=== PATIENT | female | born 1960 | race Caucasian/White ===

== ENCOUNTER → 2021-03-29 09:04 | Outpatient (CLI) | payer OTHER | END | disposition home or self-care (01) | LOC: LAB 09:04 | DX: L30.8 Other specified dermatitis (principal); G40.909 Epilepsy, unspecified, not intractable, without status epilepticus; L23.5 Allergic contact dermatitis due to other chemical products; M35.00 Sjogren syndrome, unspecified; E03.8 Other specified hypothyroidism; E78.2 Mixed hyperlipidemia; G60.8 Other hereditary and idiopathic neuropathies; M25.50 Pain in unspecified joint; A52.3 Neurosyphilis, unspecified; M81.0 Age-related osteoporosis without current pathological fracture; I20.1 Angina pectoris with documented spasm; D68.311 Acquired hemophilia ==

== ENCOUNTER 2025-01-07 07:24 | Outpatient (CLI) | payer OTHER ==
[2025-01-07 08:10] LABS: URINE APPEARANCE Clear; URINE BILIRRUBIN Negative (NEGATIVE); URINE BLOOD Negative; URINE COLOR Yellow; URINE GLUCOSE Negative (NEGATIVE); URINE KETONE Negative (NEGATIVE); URINE LEUKOCYTE Negative; URINE NITRATE Negative; URINE PROTEIN Negative (NEGATIVE); URINE UROBILINOGEN 0.2 E.U./dl
[2025-01-07 08:13] LABS: URINE BACTERIA 4.8 uL (0.0-1933)
[2025-01-07 08:18] LABS: HEMATOCRIT 40.5 % (36.0-45.00); HEMOGLOBIN 13.5 g/dL (12.0-15.00); MEAN CELL VOLUME 88.9 fL (80.00-100.00); MEAN CORPUSCULAR HEMOGLOBIN 29.5 pg (27.00-32.0); MEAN CORPUSCULAR HGB CONC 33.2 g/dl (32.0-36.0); PLATELET COUNT 324 K/uL (150-450); RED BLOOD COUNT 4.56 M/uL (4.00-6.00); RED CELL DISTRIBUTION WIDTH 14.3 % (11.5-14.5)
[2025-01-07 08:29] LABS: URINE EPITHELIAL CELLS 1.1 uL (0.0-38.8); URINE RBC 1.1 uL (0.0-20.8)
[2025-01-07 08:57] LABS: D DIMER 0.36 MG/L; PARTIAL THROMBOPLASTIN TIME 26.9 SECONDS (22.0-34.0); PROTHROMBIN TIME 10.9 SECONDS (9.0-11.5)
[2025-01-07 09:26] LABS: ALBUMIN 3.7 gm/dL (3.4-5.0); BILIRUBIN TOTAL 0.46 mg/dL (0.3-1.2); CALCIUM 9.5 mg/dL (8.5-10.1); CHOL HDL RATIO 5.3 (0-5.0); CREATININE SERUM 0.54 mg/dL (0.55-1.02); FERRITIN 35.5 NG/ML (8-252); GFR 113.66; GLOBULINA 3.1 G/DL (2.4-3.5); POTASSIUM 4.37 mEq/L (3.5-5.1); T4 TOTAL 9.3 UG/DL (4.8-13.9); TOTAL PROTEIN 6.8 gm/dL (6.4-8.2); TSH 3.63 uIU/mL (0.358-3.74)
[2025-01-07 10:18] LABS: PLATELET ESTIMATE NORMAL (NORMAL)
[2025-01-07 13:12] LABS: T3 TOTAL 1.1 ng/ml (0.846-2.02); VITAMIN D3 25 HYDROXY 46.69 ng/ml (30-120)
== END 2025-01-07 07:28 | disposition home or self-care (01) ==
LOC: LAB 07:24
PROVIDERS: ATTEND General Practice
DX: R79.89 Other specified abnormal findings of blood chemistry (principal); D68.4 Acquired coagulation factor deficiency; D64.9 Anemia, unspecified; E78.5 Hyperlipidemia, unspecified; D82.4 Hyperimmunoglobulin E [IgE] syndrome; Z11.9 Encounter for screening for infectious and parasitic diseases, unspecified; D51.9 Vitamin B12 deficiency anemia, unspecified; D52.9 Folate deficiency anemia, unspecified

== ENCOUNTER 2025-01-07 08:07 | Outpatient (CLI) | payer OTHER | END 2025-01-07 08:17 | disposition home or self-care (01) | LOC: RAD 08:07 | PROVIDERS: ATTEND General Practice | DX: J01.90 Acute sinusitis, unspecified (principal) ==

== ENCOUNTER 2025-01-08 11:58 | Outpatient (CLI) | payer OTHER | END 2025-01-08 11:59 | disposition home or self-care (01) | LOC: LAB 11:58 | PROVIDERS: ATTEND General Practice | DX: R79.89 Other specified abnormal findings of blood chemistry (principal); D68.4 Acquired coagulation factor deficiency; D64.9 Anemia, unspecified; R71.8 Other abnormality of red blood cells; E78.5 Hyperlipidemia, unspecified; E55.9 Vitamin D deficiency, unspecified; D82.4 Hyperimmunoglobulin E [IgE] syndrome; Z11.4 Encounter for screening for human immunodeficiency virus [HIV]; D51.9 Vitamin B12 deficiency anemia, unspecified; D52.9 Folate deficiency anemia, unspecified ==